=== PATIENT | female | born 1975 | race Caucasian/White ===

== ENCOUNTER 2017-10-30 15:10 | Emergency (ER) | payer OTHER ==
[~2017-10-30] VITALS: Ht 167.6 cm; Wt 68.0 kg
[2017-10-30 15:16] VITALS: BP 115/75
--- NOTE | 2017-10-30 15:56 | ED GENERAL ADULT ---
History of Present Illness General Chief Complaint: General Adult Stated Complaint: NEEDLESTICK Source: patient Exam Limitations: no limitations Vital Signs & Intake/Output Vital Signs & Intake/Output Vital Signs Date Time Temp Pulse Resp B/P B/P Pulse O2 O2 Flow FiO2 Mean Ox Delivery Rate 10/30 1516 98.1 86 18 115/75 99 Room Air Allergies Coded Allergies: Proton Pump Inhibitors (Severe, ANAPHYLAXIS 10/30/17) Reconcile Medications No Known Home Medications Triage Note: HERE FOR NEEDLE STICK INJURY, ACCIDENTALLY STUCK LEFT FOREFINGER WITH A DIRTY SCISSOR 2 HOURS AGO. Triage Nurses Notes Reviewed? yes Onset: Abrupt Duration: minute(s): Timing: single episode today Injury Environment: work Severity: mild : No Patient currently breastfeeds: No HPI: 41-year-old female presents to emergency department complaining of exposure to blood-borne pathogens while at work today here at [employer]. Patient states that she was cutting off bloody bandage from patient when she accidentally cut herself with scissors and sustained a small break in skin through her glove to her left hand. Patient had small amount of bleeding at this time. She immediately scrubbed her hands with antimicrobials, soap, water. Patient states that source patient is known hep C+, unknown HIV status however no history of HIV+. The source patient has already consented for blood work testing for blood -borne pathogens. Past History Travel History Traveled to [place] past 21 day No Medical History Any Pertinent Medical History? none EENT: NONE Cardiovascular: NONE Respiratory: NONE Gastrointestinal: NONE Hepatic: NONE Renal: NONE Musculoskeletal: NONE Psychiatric: NONE Endocrine: NONE Surgical History Surgical History: non-contributory Psychosocial History What is your primary language Urdu Tobacco Use: Never used ETOH Use: occasional use Family History Hx Contributory? No Review of Systems Review of Systems Constitutional: Reports: no symptoms. EENTM: Reports: no symptoms. Respiratory: Reports: no symptoms. Cardiovascular: Reports: no symptoms. GI: Reports: no symptoms. Genitourinary: Reports: no symptoms. Musculoskeletal: Reports: no symptoms. Skin: Reports: see HPI. Neurological/Psychological: Reports: no symptoms. Hematologic/Endocrine: Reports: see HPI. Immunologic/Allergic: Reports: no symptoms. All Other Systems: Reviewed and Negative Physical Exam Physical Exam General Appearance: well developed/nourished, no apparent distress, alert, awake Head: atraumatic, normal appearance Eyes: Bilateral: normal appearance. Ears, Nose, Throat: hearing grossly normal Neck: normal inspection, supple, full range of motion Respiratory: no respiratory distress Back: normal inspection, normal range of motion Extremities: pinpoint skin injury visible to palmar aspect of left hand without active bleeding, no laceration Neurologic/Psych: awake, alert, oriented x 3 Skin: see left hand above Core Measures ACS in differential dx? No CVA/TIA Diagnosis: No Sepsis Present: No Sepsis Focused Exam Completed? No Progress Differential Diagnoses I considered the following diagnoses in my evaluation of the patient: [Exposure to blood-borne pathogens, laceration, contusion, exposure to hepatitis C] Plan of Care: Orders Procedure Date/time Status HIV EXPOSURE/NEEDLESTICK 10/30 155 Complete HUMAN BETA HCG SCREEN 10/30 155 Complete HEPT C ANTIBODY 10/30 155 Complete HEPT B SURFACE ANTIBODY 10/30 155 Complete GAMMA GLUTAMYL TRANSFERASE 10/30 155 Complete COMPREHENSIVE METABOLIC PANEL 10/30 155 Complete CBC WITHOUT DIFFERENTIAL 10/30 155 Complete TRNSFRASE ASPART AMINO 10/30 155 Complete TRNSFRAS ALANINE AMINO 10/30 1550 Complete Laboratory Tests 10/30/ 1617: Anion Gap 12, Estimated GFR > 60, BUN/Creatinine Ratio 20.0, Glucose 87, Calcium 9.5, Total Bilirubin 0.4, GGT 19, AST 25, ALT 27, Alkaline Phosphatase 59, Total Protein 7.6, Albumin 4.7, Globulin 2.9, Albumin/Globulin Ratio 1.6, Total Beta HCG NEGATIVE, CBC w Diff NO MAN DIFF REQ, RBC 4.52, MCV 90.7, MCH 30.8, MCHC 33.9, RDW 12.8, MPV 6.5 L, Gran % 51.8, Lymphocytes % 36.3, Monocytes % 8.0, Eosinophils % 3.4, Basophils % 0.5, Absolute Granulocytes 2.7, Absolute Lymphocytes 1.9, Absolute Monocytes 0.4, Absolute Eosinophils 0.2, Absolute Basophils 0, Hep Bs Antibody REACTIVE, Hepatitis C Antibody NONREACTIVE, HIV 1&2 Antibody NONREACTIVE I discussed all risks and benefits of prophylactic HIV therapy with the patient. Patient reviewed documents for blood-borne pathogen packet and signed appropriate pages consenting to testing for blood-borne pathogens. Based on source patient's negative screening for HIV today the patient declines prophylactic HIV therapy. The source patient did test positive for hepatitis C IgG. Patient was given risks for transmission, there was no large bore needle injury, patient was wearing gloves at the time of incident. Labs drawn today are without acute abnormality. Patient to follow-up with occupational medicine tomorrow. The patient requires repeat hepatitis PCR labs and 46 weeks and repeat AST/ALT/hepatitis antibody screening in 3 months and 6 months. She understands this plan, she will follow-up with occupational medicine as discussed. I consulted Dr. Mckeon regarding possible PEP for Hep C however there is no current prophylactic medication to give patient's exposed to hepatitis C. The patient agrees with the plan of care. Dr. Burns agrees with this plan. Initial ED EKG: none Departure Departure Disposition: HOME OR SELF CARE Condition: Stable Clinical Impression Primary Impression: Exposure to blood or body fluid Secondary Impressions: Employee exposure to blood Referrals: Ni Dhillon MD (PCP/Family) Additional Instructions: Follow up with occupation medicine tomorrow. You will need repeat lab tests for HCV PCR in 4-6 weeks and Hep C antibodies, AST, ALT in 3 months and 6 months. Departure Forms: Customer Survey General Discharge Information Prescriptions: Current Visit Scripts No Known Home Medications Critical Care Note Critical Care Note Critical Care Time: non-applicable
[2017-10-30 16:30] LABS: ABSOLUTE BASOPHIL COUNT 0 /CUMM (0.0-0.2); ABSOLUTE EOSINOPHIL COUNT 0.2 /CUMM (0.0-0.7); ABSOLUTE GRANULOCYTE CT 2.7 /CUMM (1.4-6.5); ABSOLUTE LYMPH COUNT 1.9 /CUMM (1.2-3.4); ABSOLUTE MONOCYTE COUNT 0.4 /CUMM (0.10-0.60); BASOPHIL % 0.5 % (0.0-2.0); EOSINOPHIL % 3.4 % (0-5); GRANULOCYTE % 51.8 % (42.2-75.2); MEAN CORPUSCULAR HGB 30.8 PG (27.0-31.0); MEAN CORPUSCULAR HGB CONC 33.9 G/DL (33.0-37.0); MEAN CORPUSCULAR VOLUME 90.7 FL (81.0-99.0); MEAN PLATELET VOLUME 6.5 FL (7.4-10.4); PLATELET COUNT 353 /CUMM (130-400); RBC DISTRIBUTION WIDTH 12.8 % (11.5-14.5); RED BLOOD CELL CT 4.52 /CUMM (4.20-5.40); WHITE BLOOD CELL COUNT 5.2 /CUMM (4.8-10.8)
== END 2017-10-30 16:51 ==
LOC: ERH 15:10
PROVIDERS: Physician Assistant
DX: Z77.21 Contact with and (suspected) exposure to potentially hazardous body fluids (principal); W27.2XXA Contact with scissors, initial encounter; Y93.89 Activity, other specified; Y92.239 Unspecified place in hospital as the place of occurrence of the external cause
CPT/HCPCS: 86803; 87389